=== PATIENT | male | born 1975 | race African-American/Black ===

== ENCOUNTER → 2019-06-09 | Emergency (ER) | payer MEDICAID ==
[~2019-06-09] VITALS: Ht 182.9 cm; Wt 103.4 kg
[~2019-06-09] MED LIST: AUGMENTIN 875-1 EAC1 ORAL; Hydrogen Peroxide 473ml Bottle TOPIC ONE; IBUPROFEN400 MG ORAL; Tetanus/Diptheria/Pertussis IM ONE
--- NOTE | 2019-06-09 16:37 | NUR ---
ED Nurse Note: Pt ambulated to ED accompanied by caregiver with c/o laceration on the LT side of head happened an hour ago; noted no active signs of bleeding. Pt is from a assisted living. Pt is non-verbal; VSS, no signs of acute distress. Placed on bed.
[2019-06-09 16:48] VITALS: BP 137/86
--- NOTE | 2019-06-09 17:06 | Emergency Room Report ---
History of Present Illness General Chief Complaint: Laceration Source: Patient Present Illness HPI 43-year-old male with history of mental retardation brought in by parents due to the found the head that happened an hour prior to coming here. Patient did not lose consciousness. Patient is nonverbal and hard to determine whether patient has dizziness. Patient has not been vomiting. According to parents patient is under many medication and they do not want any tita or sutures nor any bandages patient will take them off. They do not also want a CT scan as patient will not sit still. The deeper cut noted in the left parietal lobe however due to patient not being cooperative and parents refusing suture closure I had to use Dermabond. Patient and patient family refused bandage. Denies all other injuries. Patient is neurovascularly intact. Patient is up-to -date with tetanus shot. Allergies: Coded Allergies: No Known Allergies (Unverified , 06/09/19) Patient History Past Medical History: see triage record Past Surgical History: none Pertinent Family History: none Immunizations: UTD Reviewed Nursing Documentation: PMH: Agreed; PSxH: Agreed Nursing Documentation-PMH History Of Psychiatric Problem: Yes - Autism, Severe Mental Retardation Hx Seizures: Yes - Epilepsy Review of Systems All Other Systems: negative except mentioned in HPI Physical Exam Vital Signs Date Time Temp Pulse Resp B/P (MAP) Pulse Ox O2 Delivery O2 Flow Rate FiO2 06/09/19 16:27 98.4 85 18 137/86 (103) 97 Room Air Sp02 EP Interpretation: reviewed, normal General Appearance: no apparent distress, alert, GCS 15, non-toxic Head: other - Laceration left parietal lobe Eyes: bilateral eye normal inspection, bilateral eye PERRL ENT: hearing grossly normal, normal pharynx, no angioedema, normal voice Neck: full range of motion, supple/symm/no masses Respiratory: chest non-tender, lungs clear, normal breath sounds, no rhonchi, no respiratory distress, no retraction, no wheezing, speaking full sentences Cardiovascular #1: regular rate, rhythm, no edema, no murmur Gastrointestinal: normal bowel sounds, non tender, soft, non-distended, no guarding, no rebound Rectal: deferred Genitourinary: no CVA tenderness Musculoskeletal: back normal Neurologic: alert, motor strength/tone normal, oriented x3, sensory intact, responsive, speech normal Skin: laceration - Laceration left parietal lobe with minimal bleeding Lymphatic: no adenopathy Procedures Laceration/Wound Repair Laceration/Wound Repair : Consent: Verbal Wound Location: head - Left parietal Wound's Depth, Shape: superficial Wound Length (cm): 1 Wound Explored: no foreign body removed Irrigated w/ Saline (ccs): 50 Wound Repaired With: Dermabond Layer Closure?: Yes Sterile Dressing Applied?: No Splint Applied?: No Sling Applied?: No Patient Tolerated: Well Complications: None Medical Decision Making PA Attestation All my diagnosis and treatment plans were reviewed ad discussed with my supervising physician Dr. العراقي Diagnostic Impression: Primary Impression: Laceration of head ER Course 43-year-old male with history of mental retardation brought in by parents due to the found the head that happened an hour prior to coming here. Patient did not lose consciousness. Patient is nonverbal and hard to determine whether patient has dizziness. Patient has not been vomiting. According to parents patient is under many medication and they do not want any tita or sutures nor any bandages patient will take them off. They do not also want a CT scan as patient will not sit still. The deeper cut noted in the left parietal lobe however due to patient not being cooperative and parents refusing suture closure I had to use Dermabond. Patient and patient family refused bandage. Denies all other injuries. Patient is neurovascularly intact. Patient is up-to -date with tetanus shot. Ddx considered but are not limited to : Superficial laceration, deep laceration , tendon involvement with laceration, laceration with foreign body Vital signs: are WNL, pt. is afebrile H&PE are most consistent with: Facial laceration scalp ORDERS: Augmentin, ibuprofen ED INTERVENTIONS: Wound closure DISCHARGE: At this time pt. is stable for d/c to home. Will provide printed patient care instructions, and any necessary prescriptions. Care plan and follow up instructions have been discussed with the patient prior to discharge. Due to laceration being fully closed due to patient habitus taking sutures and tita out as well as bandages advised patient to take antibiotics and follow-up with primary care provider. At this time no head CT scan needed as patient not lose consciousness and neurovascularly intact. However if patient starts behaving differently advised parents to bring patient back for head CT scan. According to mom patient always has imbalanced gait and a rate of his gait has not changed since the fall Last Vital Signs Date Time Temp Pulse Resp B/P (MAP) Pulse Ox O2 Delivery O2 Flow Rate FiO2 06/09/19 16:48 98.4 79 18 137/86 97 Room Air Disposition: HOME, SELF-CARE Condition: Stable Scripts Ibuprofen* (MOTRIN*) 400 Mg Tablet 400 MG ORAL Q8H, #30 TAB 0 Refills Prov: Althea Samayoa 06/09/19 Amoxicillin/Potassium Clav 875-125* (AUGMENTIN 875-125 TABLET*) 1 Each Tablet 1 TAB ORAL TWICE A DAY for 7 Days, #14 TAB Prov: Althea Samayoa 06/09/19 Patient Instructions: Laceration Care, Adult Additional Instructions: take medication as directed, follow-up primary care provider, if worsening symptoms return to emergency room. Althea Samayoa Jun 09, 2019 17:05
[2019-06-09 17:16] VITALS: BP 137/86
--- NOTE | 2019-06-09 17:16 | NUR ---
ER DISCHARGE NOTE: Pt is cleared to be discharged per ERMD, pt is AOx4, VSS, on RA. pt was given dc and prescription instructions, pt was able to verbalize understanding, pt id band removed. pt is able to ambulate with steady gait. pt took all belongings.
== END | disposition home or self-care (01) ==
LOC: EMR 17:18
DX: S01.01XA Laceration without foreign body of scalp, initial encounter (principal); Z23 Encounter for immunization; X58.XXXA Exposure to other specified factors, initial encounter; Y92.9 Unspecified place or not applicable; G40.909 Epilepsy, unspecified, not intractable, without status epilepticus; F79 Unspecified intellectual disabilities
CPT/HCPCS: 12001; 90471; 90715; Z7502; 99283